=== PATIENT | female | born 1955 | race African-American/Black ===

== ENCOUNTER 2022-12-01 19:14 | Emergency (ER) | payer BC, MEDICARE ==
[~2022-12-01] VITALS: Ht 160 cm; Wt 63.0 kg
[2022-12-01 19:18] VITALS: O2SAT 98
[2022-12-01 19:34] VITALS: BP 172/82; PULSE 85; RESP 16
[2022-12-01 23:55] LABS: BASOPHILS % 0.6 % (0.0-2.0); EOSINOPHILS % 4.9 % (0.0-5.0); HEMATOCRIT. 41.5 % (36.0-48.0); LYMPHOCYTES % 37.5 % (20.0-50.0); MEAN CORPUSCULAR HEMOGLOBIN 31.5 pg (28.0-32.0); MEAN CORPUSCULAR VOLUME 93.7 fL (81.0-99.0); MEAN PLATELET VOLUME 8.1 fl (7.4-10.4); MONOCYTES % 14.3 % (2.0-8.0); NEUTROPHILS % 42.7 % (40.0-76.0); PLATELET 229 x1000/uL (130-400); RED BLOOD CELL COUNT 4.43 mill/uL (4.2-5.4); RED CELL DISTRIBUTION WIDTH 13.3 % (11.6-14.6)
[2022-12-02 00:03] LABS: CHLORIDE 107 mEq/L (98-107)
== END 2022-12-02 00:18 | disposition home or self-care (01) ==
LOC: ER 19:14
DX: I10 Essential (primary) hypertension (principal); F41.9 Anxiety disorder, unspecified; Z90.710 Acquired absence of both cervix and uterus
CPT/HCPCS: 36415; 80053; 85025; 93005; 99284